=== PATIENT | male | born 1955 | race Caucasian/White ===

== ENCOUNTER 2023-04-26 09:34 | Emergency (ER) | payer OTHER ==
[2023-04-26 09:50] VITALS: O2SAT 98
--- NOTE | 2023-04-26 09:56 | ERPHSYRPT ---
- History of Present Illness Time Seen by Provider: 04/26/23 09:51 Source: patient Exam Limitations: no limitations Patient Subjective Stated Complaint: SOB/Left side pain Triage Nursing Assessment: Patient ambulated back to ED and transferred self to bed. Patient A+O X 3. Patient's skin pink, warm and dry. Patient states he fell yesterday due to being tripped by the dog and fell on left side of abdomen. Patient states he woke up today in pain and SOB. Patient complains of left sided abdominal pain 6/10. Patient also complains of nasal drainage and non productive cough for the past two days. Physician History: Patient 67-year-old male presents to our ED for evaluation of left-sided rib pain and shortness of breath. Patient states he tripped and fell onto his left side. Patient awoke this morning with pain to his left lower rib left upper quadrant and shortness of breath. No BHT or LOC. No neck pain. Cervical spine cleared clinically. Pain described as an ache that is worse with palpation to the left lower rib area. Symptoms are constant. Symptoms are moderate in intensity. Patient is on Xarelto for atrial fibrillation. [facility] [place] [facility] [place] at the [place] We do not have access to [facility] at this time. Patient voices no other complaints or concerns at this time. Portions of this note were created with voice recognition technology. There may be grammatical, spelling, punctuation or sound alike errors Timing/Duration: yesterday Severity: moderate Modifying Factors: Improves With: nothing Associated Symptoms: denies symptoms Allergies/Adverse Reactions: No Known Drug Allergies Allergy (Unverified 04/26/23 09:36) Hx Influenza Vaccination/Date Given: Yes Hx Pneumococcal Vaccination/Date Given: No Immunizations Up to Date: Yes Travel Risk - International Travel Have you traveled outside of the country in past 3 weeks: No - Coronavirus Screening Are you exhibiting any of the following symptoms?: No - Vaccine Status Have you recieved a Covid-19 vaccination: Yes 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 - Vaccination Dates Dates if Unknown: na - Review of Systems Constitutional: No Symptoms, No Fever, No Chills Eyes: No Symptoms Ears, Nose, & Throat: No Symptoms Respiratory: No Symptoms, No Cough, No Dyspnea Cardiac: No Symptoms, No Chest Pain, No Edema, No Syncope Abdominal/Gastrointestinal: No Symptoms, No Abdominal Pain, No Nausea, No Vomiting, No Diarrhea Genitourinary Symptoms: No Symptoms, No Dysuria Musculoskeletal: No Symptoms, No Back Pain, No Neck Pain Skin: No Symptoms, No Rash Neurological: No Symptoms, No Dizziness, No Focal Weakness, No Sensory Changes Psychological: No Symptoms Endocrine: No Symptoms Hematologic/Lymphatic: No Symptoms Immunological/Allergic: No Symptoms All Other Systems: Reviewed and Negative - Past Medical History Pertinent Past Medical History: Yes Neurological History: No Pertinent History ENT History: No Pertinent History Cardiac History: Arrhythmia, Hypertension Respiratory History: No Pertinent History Endocrine Medical History: No Pertinent History Musculoskeletal History: No Pertinent History GI Medical History: No Pertinent History History: No Pertinent History Psycho-Social History: Anxiety Male Reproductive Disorders: No Pertinent History Other Medical History: Chronic back pain - Past Surgical History Past Surgical History: Yes Neuro Surgical History: No Pertinent History Cardiac: No Pertinent History Respiratory: No Pertinent History Gastrointestinal: Hernia Repair Genitourinary: No Pertinent History Musculoskeletal: No Pertinent History Male Surgical History: No Pertinent History Other Surgical History: Hernia repair during child garcia - Social History Smoking Status: Never smoker Exposure to second hand smoke: No Drug Use: none Patient Lives Alone: No - Nursing Vital Signs Nursing Vital Signs: Initial Vital Signs Temperature 96.9 F 04/26/23 09:37 Pulse Rate 56 L 04/26/23 09:37 Respiratory Rate 18 04/26/23 09:37 Blood Pressure 170/74 04/26/23 09:37 O2 Sat by Pulse Oximetry 98 04/26/23 09:37 Pain Scale Pain Intensity 6 - Physical Exam General Appearance: no apparent distress, alert Eye Exam: PERRL/EOMI, eyes nml inspection Ears, Nose, Throat Exam: normal ENT inspection, TMs normal, pharynx normal, moist mucous membranes Neck Exam: normal inspection, non-tender, supple, full range of motion Respiratory Exam: normal breath sounds, lungs clear, airway intact, No respiratory distress Cardiovascular Exam: regular rate/rhythm, normal heart sounds, normal peripheral pulses Gastrointestinal/Abdomen Exam: soft, normal bowel sounds, No tenderness, No mass Back Exam: normal inspection, normal range of motion, No CVA tenderness, No vertebral tenderness Extremity Exam: normal inspection, normal range of motion, pelvis stable Neurologic Exam: alert, oriented x 3, cooperative, normal mood/affect, nml cerebellar function, nml station & gait, sensation nml, No motor deficits Skin Exam: normal color, warm, dry, No rash Lymphatic Exam: No adenopathy SpO2 Interpretation: normal SpO2: 98 O2 Delivery: Room Air - Course Nursing assessment & vital signs reviewed: Yes EKG Interpreted by Me: RATE (52), Sinus Rhythm, NORMAL AXIS, NORMAL INTERVALS - CT Exams Chest CT Interpretation: Tele-radiologist Report (No rib fractures. No injury to internal organs including spleen. CT chest essentially nonremarkable, left renal exophytic cyst, calcified lung nodule, chronic pulmonary findings, bib asilar pulmonary fibrosis) Ordered Tests: Active Orders 24 hr Category Date Time Status EKG-ER Only STAT Care 04/26/23 09:47 Active CHEST WITH CONTRAST [CT] Stat Exams 04/26/23 09:48 Completed CBC W DIFF Stat Lab 04/26/23 09:50 Completed CMP Stat Lab 04/26/23 10:25 Completed TROPONIN Q4H Lab 04/26/23 10:25 Received TROPONIN Q4H Lab 04/26/23 13:45 Ordered TROPONIN Q4H Lab 04/26/23 17:45 Ordered Medication Summary Discontinued Medications Generic Name Dose Route Start Last Admin Trade Name Freq PRN Reason Stop Dose Admin Ketorolac Tromethamine 30 mg 04/26/23 12:25 Ketorolac Tromethamine 30 Mg/Ml Inj IV 04/26/23 12:26 STAT ONE Lab/Rad Data: Laboratory Result Diagrams 04/26/23 09:50 04/26/23 10:25 Laboratory Results 04/26/23 04/26/23 Range/Units 10:25 09:50 WBC 5.5 (4.0-10.5) x10^3/uL RBC 5.11 (4.1-5.6) x10^6/uL Hgb 14.5 (12.5-18.0) g/dL Hct 43.9 (42-50) % MCV 85.9 (78-100) fL MCH 28.4 (26-32) pg MCHC 33.0 (32-36) g/dL RDW 13.6 (11.5-14.0) % Plt Count 236 (150-450) x10^3/uL MPV 9.6 (7.5-11.0) fL Gran % 64.9 (36.0-66.0) % Immature Gran % (Auto) 0.4 (0.00-0.4) % Nucleat RBC Rel Count 0.0 (0.00-0.1) % Eos # (Auto) 0.26 (0-0.5) x10^3/uL Immature Gran # (Auto) 0.02 (0.00-0.03) x10^3u/L Absolute Lymphs (auto) 1.24 (1.0-4.6) x10^3/uL Absolute Monos (auto) 0.37 (0.0-1.3) x10^3/uL Absolute Nucleated RBC 0.00 (0.00-0.01) x10^3u/L Lymphocytes % 22.7 L (24.0-44.0) % Monocytes % 6.8 (0.0-12.0) % Eosinophils % 4.8 (0.00-5.0) % Basophils % 0.4 (0.0-0.4) % Absolute Granulocytes 3.56 (1.4-6.9) x10^3/uL Basophils # 0.02 (0-0.4) x10^3/uL Sodium 140 (137-145) mmol/L Potassium 4.3 (3.5-5.1) mmol/L Chloride 106 (98-107) mmol/L Carbon Dioxide 25 (22-30) mmol/L Anion Gap 13.7 (5-15) MEQ/L BUN 17 (9-20) mg/dL Creatinine 0.79 (0.66-1.25) mg/dL Estimated GFR > 60.0 ML/MIN Glucose 93 (74-106) mg/dL Calcium 9.0 (8.4-10.2) mg/dL Total Bilirubin 0.50 (0.2-1.3) mg/dL AST 28 (17-59) U/L ALT 21 (0-50) U/L Alkaline Phosphatase 68 (38-126) U/L Serum Total Protein 7.0 (6.3-8.2) g/dL Albumin 3.9 (3.5-5.0) g/dL - Progress Progress: improved Progress Note: Patient is 67-year-old male presents to our ED status post fall. Patient fell yesterday and today has pain in his left rib left upper abdomen. Physical exam reveals tenderness to palpation at left rib area and left upper quadrant. Overl jai soft tissue intact. No signs of trauma. Test ordered include CBC CMP troponin. Work-up negative. CT chest negative for fractures. No involvement of the spleen. EKG normal sinus rhythm. Patient given Toradol for pain control. Will discharge home. Patient voices no other complaints or concerns at this time. Portions of this note were created with voice recognition technology. There may be grammatical, spelling, punctuation or sound alike errors Complexity of problem addressed is moderate, new diagnosis with uncertain prognosis Complexity of data reviewed and analyzed is moderate. Test ordered. Test independently reviewed by . CT scan reviewed clinical correlation completed. Request was made for radiologist to comment on spleen. Spleen appears normal on CT scan. Risk of complication and or risk morbidity/mortality of patient management is moderate. A prescription for Toradol was forwarded to patient's pharmacy. Patient voices no other complaints or concerns at this time. We will discharge home. Patient agrees to follow-up with his primary care docto r within 48 hours for reevaluation. Vital stable. Time spent to discharge patient is approximately 15 minutes. No social determinants of health present to impede follow-up. 04/26/23 12:30 Counseled pt/family regarding: lab results, diagnosis, need for follow-up, rad results - Departure Departure Disposition: Home Clinical Impression: Fall, Rib pain on left side, Left renal exophytic cyst, Calcified lung nodule, Bibasilar pulmonary fibrosis/scarring Condition: Stable Critical Care Time: No Additional Instructions: Discharge/Care Plan KATRINA DURAN was seen on 04/26/23 in the Emergency Room. The patient was counseled regarding Diagnosis,Lab results, Imaging studies, need for follow up and when to return to the Emergency Room. Prescriptions given: Discharge Note I have spoken with the patient and/or caregivers. I have explained the patient's condition, diagnosis and treatment plan based on the information available to me at this time. I have answered the patient's and/or caregiver's questions and addressed any concerns. The patient and/or caregivers have as good understanding of the patient's diagnosis, condition and treatment plan as can be expected at this point. The vital signs have been stable. The patient's condition is stable and appropriate for discharge from the emergency department. The patient will pursue further outpatient evaluation with the primary care physician or other designated or consulting physician as outlined in the discharge instructions. The patient and/or caregivers are agreeable to this plan of care and follow-up instructions have been explained in detail. The patient and/or caregivers have received these instruction. The patient/and or caregivers are aware that any significant change in condition or worsening of symptoms should prompt an immediate return to this or the closest emergency department or call 911. Prescriptions: Ketorolac Trometh 10 mg Tab [TORAdol 10 MG TABLET] 10 mg PO TID 5 Days #15 tablet
[2023-04-26 10:10] LABS: Absolute Neutrophil Ct (ANC) 3.56 x10^3/uL (1.4-6.9); BASOPHIL % 0.4 % (0.0-0.4); Basophil (Absolute #) 0.02 x10^3/uL (0-0.4); Eosinophil % 4.8 % (0.00-5.0); Eosinophil (Absolute #) 0.26 x10^3/uL (0-0.5); Hematocrit 43.9 % (42-50); Hemoglobin 14.5 g/dL (12.5-18.0); IMMATURE GRAN # 0.02 x10^3u/L (0.00-0.03); IMMATURE GRAN % 0.4 % (0.00-0.4); Lymphocyte (Absolute #) 1.24 x10^3/uL (1.0-4.6); Lymphocytes % 22.7 % (24.0-44.0); Mean Cell Volume 85.9 fL (78-100); Mean Corpuscular Hemoglobin 28.4 pg (26-32); Mean Platelet Volume 9.6 fL (7.5-11.0); Monocyte (Absolute #) 0.37 x10^3/uL (0.0-1.3); Monocytes % 6.8 % (0.0-12.0); Neutrophil % 64.9 % (36.0-66.0); Platelet Count 236 x10^3/uL (150-450); Red Blood Count 5.11 x10^6/uL (4.1-5.6); Red Cell Distribution Width 13.6 % (11.5-14.0); White Blood Count 5.5 x10^3/uL (4.0-10.5)
[2023-04-26 10:49] LABS: ALBUMIN 3.9 g/dL (3.5-5.0); ALKALINE PHOSPHATASE 68 U/L (38-126); ANION GAP 13.7 MEQ/L (5-15); BLOOD UREA NITROGEN 17 mg/dL (9-20); CHLORIDE 106 mmol/L (98-107); Carbon Dioxide 25 mmol/L (22-30); Creatinine 1 0.79 mg/dL (0.66-1.25); EST GLOMERULAR FILTRATION RATE > 60.0 ML/MIN; Glucose 93 mg/dL (74-106); Potassium 4.3 mmol/L (3.5-5.1); SGOT/AST 28 U/L (17-59); SGPT/ALT 21 U/L (0-50); SODIUM 140 mmol/L (137-145)
--- NOTE | 2023-04-26 11:45 | XRAY ---
Indication: Left rib pain and short of breath following fall. Multiple contiguous axial images obtained through the chest using 80 cc Isovue 370 contrast. Comparison: None Lungs demonstrates mild bilateral dependent atelectasis, bibasilar fibrosis/scarring, and tiny right apical calcified granuloma. No suspicious pulmonary mass/nodule, infiltrate, effusion, or pneumothorax. Heart is not enlarged. Aorta is normal in course and caliber. Small mediastinal calcified nodes. No pathologic mediastinal/hilar lymphadenopathy. Bony thorax intact. Limited upper abdomen demonstrates 6.6 cm left renal exophytic cyst. Impression: Chronic findings including bibasilar fibrosis/scarring, left renal cyst, and old granulomatous disease. Remaining CT chest with contrast exam is normal.
[2023-04-26] MEDS ORDERED: TORAdol 30 mg Injection IV ONE (12:25)
[2023-04-26] MEDS ORDERED: TORAdol 30 mg Injection ONE (12:33)
[2023-04-26 12:40] VITALS: BP 159/78; PULSE 63
== END 2023-04-26 12:57 | disposition home or self-care (01) ==
LOC: ED 09:34
DX: R07.81 Pleurodynia (principal); W01.0XXA Fall on same level from slipping, tripping and stumbling without subsequent striking against object, initial encounter; N28.1 Cyst of kidney, acquired; R91.1 Solitary pulmonary nodule; J84.10 Pulmonary fibrosis, unspecified; R06.02 Shortness of breath; I10 Essential (primary) hypertension; Z79.01 Long term (current) use of anticoagulants
CPT/HCPCS: 36000; 36415; 71260; 80053; 84484; 85025; 93005; 96374; 99284; J1885

== ENCOUNTER 2023-05-22 18:24 | Emergency (ER) | payer OTHER ==
[2023-05-22 18:41] VITALS: BP 147/69; PULSE 67; O2SAT 97
[2023-05-22] MEDS ORDERED: KEFLEX 500 MG PO ONE (19:15)
[2023-05-22] MEDS ORDERED: Adacel Vial IM ONE ×2 (19:15→19:28)
[2023-05-22] MEDS ORDERED: KEFLEX 500 MG ONE (19:27)
--- NOTE | 2023-05-22 19:31 | ERPHSYRPT ---
- History of Present Illness Time Seen by Provider: 05/22/23 19:03 Source: patient Exam Limitations: no limitations Patient Subjective Stated Complaint: C/O left elbow pain/injury after a fall yesterday evening. Triage Nursing Assessment: Patient's left elbow has a scabbed abrasion on it. Skin around abrasion is red, hot, swollen. Patient's elbow is sore to touch. Radial pulse present and strong. Patient is alert and oriented. Physician History: 67 years old male with history of hypertension, chronic back pain presented in the ER with chief complaint of left elbow pain and swelling after he slipped while getting out of his truck on a wet surface and hit his left elbow. It happened yesterday, there was a superficial laceration which he cleaned. Today started to have swelling on the posterior aspect of elbow with worsening pain on movements and feeling of soreness with resting. He was also applying heat which made it worse. Patient does report hitting her head but no loss of consciousness. Denies any headache, numbness tingling or focal weakness. Denies any neck pain. Does not want any pain medications. Unsure about tetanus status. Occurred: yesterday Method of Injury: fell Quality: sharpness Severity of Pain-Max: moderate Severity of Pain-Current: moderate Extremities Pain Location: elbow: left Modifying Factors: Improves With: cold therapy, immobilization. Worsens With: movement Associated Symptoms: none Allergies/Adverse Reactions: No Known Drug Allergies Allergy (Verified 05/22/23 18:29) Home Medications: Gabapentin [Gralise] 1 tab PO DAILY 05/22/23 [History] Lisinopril 20 mg [Zestril 20 MG] 1 tab PO DAILY 05/22/23 [History] Hx Tetanus, Diphtheria Vaccination/Date Given: Yes Hx Influenza Vaccination/Date Given: Yes Hx Pneumococcal Vaccination/Date Given: No Travel Risk - International Travel Have you traveled outside of the country in past 3 weeks: No - Coronavirus Screening Are you exhibiting any of the following symptoms?: No Close contact with a COVID-19 positive Pt in past 14-21 Days: No - Vaccine Status Have you recieved a Covid-19 vaccination: Yes 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 - Review of Systems Constitutional: No Symptoms Eyes: No Symptoms Ears, Nose, & Throat: No Symptoms Respiratory: No Symptoms Cardiac: No Symptoms Abdominal/Gastrointestinal: No Symptoms Genitourinary Symptoms: No Symptoms Musculoskeletal: Injury Skin: Skin Lesions Neurological: No Symptoms Psychological: No Symptoms Endocrine: No Symptoms Immunological/Allergic: No Symptoms - Past Medical History Pertinent Past Medical History: Yes Neurological History: No Pertinent History ENT History: No Pertinent History Cardiac History: Arrhythmia, Hypertension Respiratory History: No Pertinent History Endocrine Medical History: No Pertinent History Musculoskeletal History: No Pertinent History GI Medical History: No Pertinent History History: No Pertinent History Psycho-Social History: Anxiety, Depression Male Reproductive Disorders: No Pertinent History Other Medical History: Chronic back pain - Past Surgical History Past Surgical History: No Neuro Surgical History: No Pertinent History Cardiac: No Pertinent History Respiratory: No Pertinent History Gastrointestinal: Hernia Repair Genitourinary: No Pertinent History Musculoskeletal: No Pertinent History Male Surgical History: No Pertinent History Other Surgical History: Patient denies any surgical history - Social History Smoking Status: Never smoker Exposure to second hand smoke: No Drug Use: none Patient Lives Alone: No - Nursing Vital Signs Nursing Vital Signs: Initial Vital Signs Blood Pressure 147/69 05/22/23 18:29 O2 Sat by Pulse Oximetry 95 05/22/23 18:29 Pain Scale Pain Intensity 7 - Physical Exam General Appearance: no apparent distress, alert Eyes, Ears, Nose, Throat Exam: normal ENT inspection Neck Exam: normal inspection, non-tender, supple, full range of motion Cardiovascular/Respiratory Exam: chest non-tender, normal breath sounds, regular rate/rhythm Abdominal Exam: non-tender, soft Back Exam: normal inspection, No vertebral tenderness Shoulder Exam: normal inspection, non-tender, no evidence of injury, normal ROM Elbow/Forearm Exam: normal ROM, pain, soft tissue tenderness, swelling (Swelling posterior aspect of left elbow with small laceration having dried blood. Warm and mildly tender to touch. Intact range of motion. Distal neurovascular intact.) Wrist Exam: normal inspection, non-tender, no evidence of injury, normal ROM Hand Exam: normal inspection, no evidence of injury, normal ROM Neuro/Tendon Exam: normal sensation, normal motor functions, normal tendon functions Mental Status Exam: alert, oriented x 3, cooperative Skin Exam: normal color SpO2 Interpretation: normal SpO2: 97 O2 Delivery: Room Air Ordered Tests: Active Orders 24 hr Category Date Time Status ELBOW (MINIMUM 3 VIEWS) Stat Exams 05/22/23 18:31 Taken Medication Summary Discontinued Medications Generic Name Dose Route Start Last Admin Trade Name Amy PRN Reason Stop Dose Admin Bacitracin Zinc Confirm 05/22/23 19:44 Bacitracin Packet 1 Each Pckt Administered 05/22/23 19:45 Dose 1 each .ROUTE .STK-MED ONE Cephalexin HCl 500 mg 05/22/23 19:15 05/22/23 19:32 Cephalexin Mh500 Mg Capsule PO 05/22/23 19:16 500 mg STAT ONE Administration Cephalexin HCl Confirm 05/22/23 19:27 Cephalexin Mh500 Mg Capsule Administered 05/22/23 19:28 Dose 500 mg .ROUTE .STK-MED ONE Diphtheria/Tetanus/Acell Pertussis 0.5 ml 05/22/23 19:15 05/22/23 19:30 Tdap --Diph,Pertuss(Acell),Tet Vac/Pf 0.5 Ml Vial IM 05/22/23 19:16 0.5 ml .ONCE ONE Administration Diphtheria/Tetanus/Acell Pertussis Confirm 05/22/23 19:28 Tdap --Diph,Pertuss(Acell),Tet Vac/Pf 0.5 Ml Vial Administered 05/22/23 19:29 Dose 0.5 ml IM .STK-MED ONE - Progress Progress: unchanged Progress Note: 05/22/23 19:29 67 years old male with history of hypertension, chronic back pain presented in the ER with chief complaint of left elbow pain and swelling after he slipped while getting out of his truck on a wet surface and hit his left elbow. It happened yesterday, there was a superficial laceration which he cleaned. Today started to have swelling on the posterior aspect of elbow with worsening pain on movements and feeling of soreness with resting. He was also applying heat which made it worse. Patient does report hitting her head but no loss of consciousness. Denies any headache, numbness tingling or focal weakness. Denies any neck pain. Does not want any pain medications. Unsure about tetanus status. Patient CT head and cervical spine with patient declined. Has nonfocal neuro exam. Has intact range of motion of left elbow. Does have a laceration with dried blood. It is cleaned and topical antibiotics applied and dressing done. X-rays left elbow obtained reviewed by me negative for acute fracture dislocation. I believe patient is having cellulitis secondary to open sore. Tetanus is updated and patient is started on Keflex. Recommended continue with gabapentin and Tylenol as needed. There was a clear mechanical fall, do not think needs any other work-up. Outpatient orthopedics follow-up recommended. Discussed signs symptoms of worsening/wound care needing return to ER which she seems understanding. Stable for discharge. 05/22/23 19:33 Counseled pt/family regarding: diagnosis, need for follow-up, rad results Medical Desision Making - Diagnostic Testing Diagnostic test were ordered, analyzed, and reviewed by me: Yes Radiological Interpretation: Interpreted by me, Reviewed by me - Departure Departure Disposition: Home Clinical Impression: Cellulitis of left elbow, Fall Condition: Stable Critical Care Time: No Referrals: [facility] [Primary Care Provider] - Follow up/PCP as directed (1-2 days for reevaluation) ORTHO - STEPHEN GUDINO NP [NON-STAFF PHY W/O PRIVILEGES] - Follow up/PCP as directed (1-2 days for review) Instructions: Wound Care (DC), Cellulitis (Skin Infection), Adult ED Additional Instructions: Intermittent ice application. Take Tylenol as needed for pain. Keep it clean. Follow-up with primary care/Ortho for reevaluation early next week. Return to ER for increasing swelling pain redness discharge/difficulty movements of elbow or if develop fever chills etc. Prescriptions: Cephalexin Mh 500 mg [Keflex 500 mg] 500 mg PO TID #28 cap
[2023-05-22] MEDS ORDERED: BACIGUENT PACKET ONE (19:44)
--- NOTE | 2023-05-23 08:39 | XRAY ---
Indication: Pain following fall. Comparison: None 3 view left elbow demonstrates tiny medial epicondyle spurring and posterior soft tissue swelling. No other bony, articular, or soft tissue abnormalities.
== END 2023-05-22 19:55 | disposition home or self-care (01) ==
LOC: ED 18:24
DX: L03.114 Cellulitis of left upper limb (principal); W01.0XXA Fall on same level from slipping, tripping and stumbling without subsequent striking against object, initial encounter; M25.522 Pain in left elbow; I10 Essential (primary) hypertension; Z79.899 Other long term (current) drug therapy; Z23 Encounter for immunization
CPT/HCPCS: 73080; 90471; 90715; 99283; A9270-GY

== ENCOUNTER 2024-07-30 11:04 | Emergency (ER) | payer OTHER ==
[2024-07-30 11:25] VITALS: TEMP 97.3; O2SAT 98
[2024-07-30] MEDS ORDERED: NORCO 5/325 MG ONE (12:02)
[2024-07-30] MEDS: NORCO 5/325 MG PO ONE (12:03)
--- NOTE | 2024-07-30 12:08 | ERPHSYRPT ---
- History of Present Illness Time Seen by Provider: 07/30/24 11:50 Source: patient, family Exam Limitations: no limitations Patient Subjective Stated Complaint: pt here for pain and swelling to both feet for a few days. no injury Triage Nursing Assessment: pt alert walked in, resp easy, skin w/d/p. has slight swelling to ball of left foot, has strong pedal pulse, feet warm Physician History: Patient states that he has a pain and swelling in both the feet. I do not see any swelling. Patient said that he has neuropathy. He takes gabapentin. Patient states that he broke his right ankle and the [facility] messed it up so they are going to replicate and read to my right ankle. I am feeling more pain in my left foot. Method of Injury: unknown Occurred: yesterday Quality: constant, throbbing Severity of Pain-Max: moderate Severity of Pain-Current: moderate Lower Extremities Pain: foot: left Modifying Factors: Improves With: nothing Associated Symptoms: none Allergies/Adverse Reactions: No Known Drug Allergies Allergy (Verified 07/30/24 11:25) Home Medications: Gabapentin [Gralise] 1 tab PO DAILY 05/22/23 [History] Lisinopril 20 mg [Zestril 20 MG] 1 tab PO DAILY 05/22/23 [History] Rivaroxaban 10 mg Tablet [Xarelto 10 mg Tablet] 1 ea DAILY 07/30/24 [History] Trazodone HCl 50 mg [Desyrel 50 mg] 50 mg PO DAILY 07/30/24 [History] Hx Tetanus, Diphtheria Vaccination/Date Given: No Hx Influenza Vaccination/Date Given: No Hx Pneumococcal Vaccination/Date Given: No Immunizations Up to Date: Yes Travel Risk - International Travel Have you traveled outside of the country in past 3 weeks: No - Emerging Infectious Disease Are you exhibiting symptoms associated with any current EIDs: No - Review of Systems Constitutional: No Fever, No Chills Eyes: No Symptoms Ears, Nose, & Throat: No Symptoms Respiratory: No Cough, No Dyspnea Cardiac: No Chest Pain, No Edema, No Syncope Abdominal/Gastrointestinal: No Abdominal Pain, No Nausea, No Vomiting, No Diarrhea Genitourinary Symptoms: No Dysuria Musculoskeletal: Joint Pain, Other (Pain bilateral feet, more on the left side. Patient says I have swelling but I do not see any swelling), No Back Pain, No Neck Pain Skin: No Rash Neurological: No Dizziness, No Focal Weakness, No Sensory Changes Psychological: No Symptoms Endocrine: No Symptoms All Other Systems: Reviewed and Negative - Past Medical History Pertinent Past Medical History: Yes Neurological History: No Pertinent History ENT History: No Pertinent History Cardiac History: Arrhythmia, Hypertension Respiratory History: No Pertinent History Endocrine Medical History: No Pertinent History Musculoskeletal History: No Pertinent History GI Medical History: No Pertinent History History: No Pertinent History Psycho-Social History: Anxiety, Depression Male Reproductive Disorders: No Pertinent History Other Medical History: Chronic back pain ,ptsd,afib, needs pacemaker - Past Surgical History Past Surgical History: No Neuro Surgical History: No Pertinent History Cardiac: No Pertinent History Respiratory: No Pertinent History Gastrointestinal: Hernia Repair Genitourinary: No Pertinent History Musculoskeletal: Orthopedic Surgery Male Surgical History: No Pertinent History Other Surgical History: rigth foot x2 - Social History Smoking Status: Never smoker Exposure to second hand smoke: No Drug Use: none Patient Lives Alone: No - Social Determinants of Health Will the patient participate in the screening: Declined to provide - Nursing Vital Signs Nursing Vital Signs: Initial Vital Signs Temperature 97.3 F 07/30/24 11:24 Pulse Rate 62 07/30/24 11:24 Respiratory Rate 16 07/30/24 11:24 Blood Pressure 172/85 07/30/24 11:24 O2 Sat by Pulse Oximetry 98 07/30/24 11:24 Pain Scale Pain Intensity 8 - Physical Exam General Appearance: alert Eyes, Ears, Nose, Throat Exam: moist mucous membranes Neck Exam: non-tender, supple Cardiovascular/Respiratory Exam: chest non-tender, normal breath sounds, regular rate/rhythm, no respiratory distress Gastrointestinal/Abdominal Exam: non-tender, guarding Back Exam: normal inspection, No vertebral tenderness Hips Exam: bilateral: non-tender, normal range of motion Legs Exam: bilateral leg: non-tender, normal range of motion Knees Exam: bilateral knee: non-tender, normal range of motion Ankle Exam: bilateral ankle: non-tender, normal range of motion Foot Exam: bilateral foot: normal range of motion, pain Neuro/Tendon Exam: normal sensation, normal motor functions, no evidence tendon injury Mental Status Exam: alert, oriented x 3, cooperative Skin Exam: normal color, warm, dry SpO2 Interpretation: normal SpO2: 98 O2 Delivery: Room Air - Course Nursing assessment & vital signs reviewed: Yes Ordered Tests: Active Orders 24 hr Category Date Time Status FOOT (MINIMUM 3 VIEWS) Stat Exams 07/30/24 12:08 Completed BMP Stat Lab 07/30/24 12:14 Completed CBC W DIFF Stat Lab 07/30/24 12:14 Completed D-DIMER QUANTITATIVE Stat Lab 07/30/24 12:14 Completed Uric Acid Stat Lab 07/30/24 12:14 Completed Medication Summary Discontinued Medications Generic Name Dose Route Start Last Admin Trade Name Amy PRN Reason Stop Dose Admin Hydrocodone Bitart/Acetaminophen 1 tab 07/30/24 11:56 07/30/24 12:03 Hydrocodone/Apap 5/325 1 Tab Tablet PO 07/30/24 11:57 1 tab STAT ONE Administration Hydrocodone Bitart/Acetaminophen Confirm 07/30/24 12:02 Hydrocodone/Apap 5/325 1 Tab Tablet Administered 07/30/24 12:03 Dose 1 tab [facility] Lab/Rad Data: Laboratory Result Diagrams 07/30/24 12:14 07/30/24 12:14 Laboratory Results 07/30/24 07/30/24 07/30/24 Range/Units 12:14 12:14 12:14 WBC 5.8 (4.23-9.07) x10^3/uL RBC 4.69 (4.63-6.08) x10^6/uL Hgb 13.7 (13.7-17.5) g/dL Hct 39.9 L (40.1-51.0) % MCV 85.1 (79.0-92.2) fL MCH 29.2 (25.7-32.2) pg MCHC 34.3 (32.3-36.5) g/dL RDW 13.8 (11.6-14.4) % Plt Count 203 (163-337) x10^3/uL MPV 9.3 L (9.4-12.4) fL Gran % 62.5 (34.0-67.9) % Immature Gran % (Auto) 0.5 H (0.001-0.429) % Nucleat RBC Rel Count 0.0 (0.00-0.2) % Eos # (Auto) 0.30 (0.04-0.54) x10^3/uL Immature Gran # (Auto) 0.03 (0.001-0.031) x10^3u/L Absolute Lymphs (auto) 1.34 (1.32-3.57) x10^3/uL Absolute Monos (auto) 0.51 (0.30-0.82) x10^3/uL Absolute Nucleated RBC 0.00 (0.00-0.012) x10^3u/L Lymphocytes % 23.0 (21.8-53.1) % Monocytes % 8.7 (5.3-12.2) % Eosinophils % 5.1 (0.8-7.0) % Basophils % 0.2 (0.2-1.2) % Absolute Granulocytes 3.64 (1.78-5.38) x10^3/uL Basophils # 0.01 (0.01-0.08) x10^3/uL D-Dimer 0.27 (0.0-0.50) mg/L Sodium 138 (135-145) mmol/L Potassium 3.9 (3.5-5.1) mmol/L Chloride 105 (98-107) mmol/L Carbon Dioxide 25 (22-30) mmol/L Anion Gap 11.4 (5-15) MEQ/L BUN 19 (9-20) mg/dL Creatinine 0.92 (0.66-1.25) mg/dL Estimated GFR 89.5 ML/MIN Glucose 110 H (74-106) mg/dL Uric Acid 8.4 H (3.5-7.2) mg/dL Calcium 9.6 (8.4-10.2) mg/dL - Progress Progress: improved Progress Note: 07/30/24 13:41 Patient is stable. Pain improved. Uric acid is elevated. Shows heel spur. I will treat patient under gout with NSAID and steroid. I discussed this with the patient. 07/30/24 13:41 Medical Desision Making - Risk of complications Minimal Risk: Minimal risk of morbidity - Departure Departure Disposition: Home Clinical Impression: Gout of foot Qualifiers: Gout etiology: idiopathic Chronicity: acute Laterality: left Qualified Code(s): M10.072 - Idiopathic gout, left ankle and foot Condition: Stable Critical Care Time: No Referrals: HOSPITAL,'S [Primary Care Provider] - Follow up/PCP as directed Additional Instructions: Rest, elevation. See PCP in few days. Return to the ER for any emergency or new symptoms or worsening symptoms Prescriptions: Prednisone 10 mg [Deltasone 10 mg] 10 mg PO DAILY #5 tablet Indomethacin 25 mg [Indocin 25 MG] 25 mg PO BID 5 Days #10 cap PANTOPRAZOLE 40 mg Tablet [Protonix 40MG Tablet] 40 mg PO QAM #7 tab
[2024-07-30 12:22] LABS: Absolute Neutrophil Ct (ANC) 3.64 x10^3/uL (1.78-5.38); BASOPHIL % 0.2 % (0.2-1.2); Basophil (Absolute #) 0.01 x10^3/uL (0.01-0.08); Eosinophil % 5.1 % (0.8-7.0); Hematocrit 39.9 % (40.1-51.0); Hemoglobin 13.7 g/dL (13.7-17.5); IMMATURE GRAN # 0.03 x10^3u/L (0.001-0.031); IMMATURE GRAN % 0.5 % (0.001-0.429); Lymphocyte (Absolute #) 1.34 x10^3/uL (1.32-3.57); Mean Cell Volume 85.1 fL (79.0-92.2); Mean Corpuscular Hemoglobin 29.2 pg (25.7-32.2); Mean Corpuscular Hgb Concent. 34.3 g/dL (32.3-36.5); Mean Platelet Volume 9.3 fL (9.4-12.4); Monocyte (Absolute #) 0.51 x10^3/uL (0.30-0.82); Monocytes % 8.7 % (5.3-12.2); Neutrophil % 62.5 % (34.0-67.9); Platelet Count 203 x10^3/uL (163-337); Red Blood Count 4.69 x10^6/uL (4.63-6.08); Red Cell Distribution Width 13.8 % (11.6-14.4); White Blood Count 5.8 x10^3/uL (4.23-9.07)
--- NOTE | 2024-07-30 12:35 | XRAY ---
Indication: Pain. Comparison: None 3 nonweightbearing views left foot demonstrates small plantar heel spur. No other bony, articular, or soft tissue abnormalities.
[2024-07-30 12:56] LABS: ANION GAP 11.4 MEQ/L (5-15); Calcium 9.6 mg/dL (8.4-10.2); Creatinine 1 0.92 mg/dL (0.66-1.25); EST GLOMERULAR FILTRATION RATE 89.5 ML/MIN; Potassium 3.9 mmol/L (3.5-5.1); Uric Acid 8.4 mg/dL (3.5-7.2)
[2024-07-30 14:04] VITALS: BP 133/83; PULSE 80; RESP 18
== END 2024-07-30 14:00 | disposition home or self-care (01) ==
LOC: ED 11:04
DX: M10.072 Idiopathic gout, left ankle and foot (principal); R60.0 Localized edema; M79.672 Pain in left foot; M79.671 Pain in right foot
CPT/HCPCS: 36415; 73630; 80048; 84550; 85025; 85379; 99283; A9270-GY

== ENCOUNTER 2024-10-20 18:01 | Emergency (ER) | payer OTHER ==
[2024-10-20 18:15] VITALS: TEMP 97.9
--- NOTE | 2024-10-20 18:21 | ERPHSYRPT ---
- History of Present Illness Time Seen by Provider: 10/20/24 18:20 Source: patient, family Exam Limitations: no limitations Patient Subjective Stated Complaint: Cough Triage Nursing Assessment: Patient ambulated back to ED and transferred self to bed. Patient A+O X3. Patient's skin pink, warm and dry. Patient complains of non productive cough, sore throat, bodyaches and being tired since Tuesday. Patient denies pain or discomfort. Lungs clear a/p jazmine. Physician History: Patient complains of non productive cough, sore throat, bodyaches and being tired since Tuesday. Patient denies pain or discomfort. Timing/Duration: day(s) (5 days) Cough Quality/Degree: dry cough Associated Symptoms: cough, sore throat Allergies/Adverse Reactions: No Known Drug Allergies Allergy (Verified 10/20/24 18:08) Home Medications: Gabapentin [Gralise] 1 tab PO DAILY 05/22/23 [History] Lisinopril 20 mg [Zestril 20 MG] 1 tab PO DAILY 05/22/23 [History] Rivaroxaban 10 mg Tablet [Xarelto 10 mg Tablet] 1 ea DAILY 07/30/24 [History] Trazodone HCl 50 mg [Desyrel 50 mg] 50 mg PO DAILY 07/30/24 [History] Hx Tetanus, Diphtheria Vaccination/Date Given: No Hx Influenza Vaccination/Date Given: No Hx Pneumococcal Vaccination/Date Given: No Immunizations Up to Date: Yes Travel Risk - International Travel Have you traveled outside of the country in past 3 weeks: No - Emerging Infectious Disease Are you exhibiting symptoms associated with any current EIDs: Yes Symptoms: Cough: New Onset - Review of Systems Constitutional: No Fever, No Chills Eyes: No Symptoms Ears, Nose, & Throat: No Symptoms, Throat Pain, Hoarse, Painful Swallowing, No Throat Swelling Respiratory: No Cough, No Dyspnea Cardiac: No Chest Pain, No Edema, No Syncope Abdominal/Gastrointestinal: No Abdominal Pain, No Nausea, No Vomiting, No Diarrhea Genitourinary Symptoms: No Dysuria Musculoskeletal: No Back Pain, No Neck Pain Skin: No Rash Neurological: No Dizziness, No Focal Weakness, No Sensory Changes Psychological: No Symptoms Endocrine: No Symptoms All Other Systems: Reviewed and Negative - Past Medical History Pertinent Past Medical History: Yes Neurological History: No Pertinent History ENT History: No Pertinent History Cardiac History: Arrhythmia, Hypertension Respiratory History: No Pertinent History Endocrine Medical History: No Pertinent History Musculoskeletal History: No Pertinent History GI Medical History: No Pertinent History History: No Pertinent History Psycho-Social History: Anxiety, Depression Male Reproductive Disorders: No Pertinent History Other Medical History: Chronic back pain ,ptsd,afib, - Past Surgical History Past Surgical History: No Neuro Surgical History: No Pertinent History Cardiac: No Pertinent History, Pacemaker Respiratory: No Pertinent History Gastrointestinal: Hernia Repair Genitourinary: No Pertinent History Musculoskeletal: Orthopedic Surgery Male Surgical History: No Pertinent History Other Surgical History: rigth foot x2 - Social History Smoking Status: Never smoker Exposure to second hand smoke: No Drug Use: none Patient Lives Alone: No - Social Determinants of Health Will the patient participate in the screening: Yes Do you worry about a steady place to live?: No Do you have any problems with any of the following?: No known problems In the past 12 months,have you had to go without utilities?: No Transportation Issues: No Has anyone in your support network made you feel unsafe?: No Have you or anyone in your house had to go without enough: No - Nursing Vital Signs Nursing Vital Signs: Initial Vital Signs Temperature 97.9 F 10/20/24 18:08 Pulse Rate 73 10/20/24 18:08 Respiratory Rate 18 10/20/24 18:08 Blood Pressure 173/96 10/20/24 18:08 O2 Sat by Pulse Oximetry 96 10/20/24 18:08 Pain Scale Pain Intensity 0 - Physical Exam General Appearance: no apparent distress, alert Eye Exam: PERRL/EOMI, eyes nml inspection Ears, Nose, Throat Exam: normal ENT inspection, TMs normal, moist mucous membranes, pharyngeal erythema Neck Exam: normal inspection, non-tender, supple, full range of motion Respiratory Exam: normal breath sounds, lungs clear, No respiratory distress Cardiovascular Exam: regular rate/rhythm, normal heart sounds Gastrointestinal/Abdomen Exam: soft, No tenderness Back Exam: normal inspection, No CVA tenderness, No vertebral tenderness Extremity Exam: normal inspection, normal range of motion Neurologic Exam: alert, oriented x 3, cooperative, normal mood/affect, sensation nml, No motor deficits Skin Exam: normal color, warm, dry, No rash Lymphatic Exam: No adenopathy SpO2: 98 - Course Nursing assessment & vital signs reviewed: Yes Ordered Tests: Medication Summary Generic Name Dose Route Start Last Admin Trade Name Frejarett PRN Reason Stop Dose Admin Phenol 10 ml 10/20/24 22:00 Phenol/Sodium Phenolate 180 Ml Bottle PO 11/19/24 21:59 QID ENE Discontinued Medications Generic Name Dose Route Start Last Admin Trade Name Freq PRN Reason Stop Dose Admin Lidocaine HCl 15 ml 10/20/24 19:18 10/20/24 19:19 Lidocaine Hcl 2% Viscous 15 Ml Udcup PO 10/20/24 19:19 15 ml STAT ONE Administration Lidocaine HCl Confirm 10/20/24 19:16 Lidocaine Hcl 2% Viscous 15 Ml Udcup Administered 10/20/24 19:17 Dose 15 ml .ROUTE .[facility]-MED ONE Lab/Rad Data: Laboratory Results 10/20/24 10/20/24 Range/Units 18:31 18:31 Influenza Type A Ag NEGATIVE (NEGATIVE) Influenza Type B Ag NEGATIVE (NEGATIVE) RSV (PCR) NEGATIVE (NEGATIVE) SARS-CoV-2 (PCR) NEGATIVE (NEGATIVE) Group A Strep Antibody NOT DETECTED (NEGATIVE) - Progress Progress: unchanged Counseled pt/family regarding: lab results, diagnosis, need for follow-up Medical Desision Making - Independent Historian Additional History obtained from: Spouse - Diagnostic Testing Diagnostic test were ordered, analyzed, and reviewed by me: Yes - Risk of complications Minimal Risk: Minimal risk of morbidity - Departure Departure Disposition: Home Clinical Impression: Laryngitis without obstruction, acute Condition: Stable Critical Care Time: No Referrals: HOSPITAL,'S [Primary Care Provider] - Follow up/PCP as directed Instructions: Laryngitis (DC), Laryngitis ED Additional Instructions: Discharge/Care Plan RENEEKATRINA Sara was seen on 10/20/24 in the Emergency Room. The patient was counseled regarding Diagnosis,Lab results, Imaging studies, need for follow up and when to return to the Emergency Room. Prescriptions given: Discharge Note I have spoken with the patient and/or caregivers. I have explained the patient's condition, diagnosis and treatment plan based on the information available to me at this time. I have answered the patient's and/or caregiver's questions and addressed any concerns. The patient and/or caregivers have as good understanding of the patient's diagnosis, condition and treatment plan as can be expected at this point. The vital signs have been stable. The patient's condition is stable and appropriate for discharge from the emergency department. The patient will pursue further outpatient evaluation with the primary care physician or other designated or consulting physician as outlined in the discharge instructions. The patient and/or caregivers are agreeable to this plan of care and follow-up instructions have been explained in detail. The patient and/or caregivers have received these instruction. The patient/and or caregivers are aware that any significant change in condition or worsening of symptoms should prompt an immediate return to this or the closest emergency department or call 911. RENEEKATRINA JANG was seen on 10/20/24 n the Emergency Room. At that time you were treated for an emergent condition, during your visit Laboratory, Radiology and/or other procedures may have been ordered. It is very important that you follow-up with your Primary Care Physician [facility] within the next 24-48 hours to review your Emergency Room visit and the final results of testing that was ordered. Some test results such as Urine Cultures, Blood Cultures, and other cultures if ordered will not be finalized for 24-48 hours. If you do not have a Primary Care Provider please call the medical records department at [phone] ext [phone] to obtain a copy of your results or you may sign into our patient portal to obtain these results by visiting us @ [email or web address] and completing the following steps: 1. Click on the Patient Portal link 2. Click the Patient Self Enrollment Link to complete the enrollment form and entering your 3. Once the enrollment form is completed you will receive an email with a temporary ID and password at the email address you provided. 4. Next choose a user name and password. Your user name must be at least 4 characters long and your password must be at least 4 characters long. 5. Choose a security question from the list and provide your answer to the question. If you already have signed into the Health Portal you may access your Health Care Information 30/05 by the following steps: 1. Login to our website @ [email or web address] 2. Enter your original user name and password. FAQS The [facility] Portal is an online tool that contains your Lab Results, Radiology Reports, Visit History, Discharge Instructions and Health Summary Lab and Radiology Results will not be available for 72 hours on the portal. The Portal is a secure site, passwords are encryted and URLs are re-written so they cannot be copied and pasted. You and authorized family members are the only ones who can access your Portal. Also there is a timeout feature that protects your information if you leave the Portal page open. If you have technical difficulty please use the Contact Us link on the page this will allow you to submit any questions you have regarding the Portal or you may contact the Medical Record Department at [phone]. Prescriptions: Azithromycin [Zithromax Tri-Barron] 500 mg PO QAM #3 tablet
[2024-10-20 19:08] LABS: INFLUENZA A NEGATIVE (NEGATIVE); INFLUENZA B NEGATIVE (NEGATIVE); RESPIRATORY SYNCTIAL VIRUS NEGATIVE (NEGATIVE); SARS-CoV-2 Xpert Express NEGATIVE (NEGATIVE)
[2024-10-20] MEDS ORDERED: XYLOCAINE VISCOUS 2% 15 ML CUP ONE (19:16)
[2024-10-20] MEDS: XYLOCAINE VISCOUS 2% 15 ML CUP PO ONE (19:19)
[2024-10-20] MEDS ORDERED: Zithromax 250 MG TABLET ONE (19:37)
[2024-10-20] MEDS: Zithromax 250 MG TABLET PO ONE (19:37)
[2024-10-20 19:42] VITALS: BP 175/91; PULSE 70; RESP 17; O2SAT 99
[2024-10-20] MEDS ORDERED: CHLORASEPTIC SPRAY 180 ML PO SCH (22:00)
== END 2024-10-20 19:50 | disposition home or self-care (01) ==
LOC: ED 18:01
DX: J04.2 Acute laryngotracheitis (principal); R05.9 Cough, unspecified
CPT/HCPCS: 0241U; 87651; 99283; A9270-GY